=== PATIENT | female | born 1975 | race Caucasian/White ===

== ENCOUNTER 2018-09-05 19:47 | Emergency (ER) | payer OTHER, SELFPAY ==
[2018-09-05] MEDS ORDERED: IBUPROFEN 200 MG TAB PO ONE (20:33)
--- NOTE | 2018-09-05 21:07 | RAD REPORT ---
EXAM DESCRIPTION: RAD - Foot Left 3 View - 09/05/2018 8:53 pm CLINICAL HISTORY: Left Foot pain status post injury FINDINGS: Minimally displaced oblique fracture involves the mid aspect of the first metatarsal. No d islocation
--- NOTE | 2018-09-05 21:17 | ER ---
Nurse's Notes [facility] Name: Madie Kolb Age: 43 yrs Sex: Female : 1975 Arrival Date: 09/05/2018 Time: 19:48 Bed 18 Private MD: Diagnosis: Displaced fracture of first metatarsal bone, left foot Presentation: 09/05 20:20 Presenting complaint: Patient states: "I dropped some steel from work on my foot" aj1 Reports pain to left foot for the past 2 hours. Swelling noted to left foot. Transition of care: patient was not received from another setting of care. Onset of symptoms was September 05, 2018. Risk Assessment: Do you want to hurt yourself or someone else? Patient reports no desire to harm self or others. Initial Sepsis Screen: Does the patient meet any 2 criteria? No. Patient's initial sepsis screen is negative. Does the patient have a suspected source of infection? No. Patient's initial sepsis screen is negative. Care prior to arrival: None. 20:20 Method Of Arrival: Wheelchair aj1 20:20 Acuity: INGRIS 4 aj1 Triage Assessment: 20:21 General: Appears in no apparent distress. uncomfortable, Behavior is calm, cooperative, aj1 appropriate for age. Pain: Complains of pain in left foot Pain currently is 10 out of 10 on a pain scale. Neuro: Level of Consciousness is awake, alert, obeys commands. Cardiovascular: Patient's skin is warm and dry. Respiratory: Airway is patent Respiratory effort is even, unlabored, Respiratory pattern is regular, symmetrical. Musculoskeletal: Range of motion: limited in left ankle. Injury Description: Patient reports that she dropped steel onto her foot. 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 - Social history:: Smoking status: Patient/guardian denies using tobacco. - Ebola Screening: : Patient denies travel to an Ebola-affected area in the 21 days before illness onset. Screenin:48 Abuse screen: Denies threats or abuse. Nutritional screening: No deficits noted. tr5 Tuberculosis screening: No symptoms or risk factors identified. Fall Risk None identified. Total Severino Fall Scale indicates No Risk (0-24 pts). Assessment: 20:48 General: Appears uncomfortable, Behavior is calm, cooperative, appropriate for age. tr5 Pain: Complains of pain in left foot. Pain: Pain does not radiate. Quality of pain is described as aching, Is continuous. Neuro: Level of Consciousness is awake, alert, obeys commands, Oriented to person, place, time, Sub Arc Operator are equal bilaterally Moves all extremities. Cardiovascular: Heart tones present Bruits absent Capillary refill < 3 seconds Pulses are all present. Edema is 2+ to left foot and left toes. Respiratory: Airway is patent Trachea midline Respiratory effort is even, unlabored, Respiratory pattern is regular, symmetrical, Breath sounds are clear bilaterally. GI: No signs and/or symptoms were reported involving the gastrointestinal system. : No signs and/or symptoms were reported regarding the genitourinary system. EENT: No signs and/or symptoms were reported regarding the EENT system. Derm: Skin is intact, Skin is dry, Skin is normal, Skin temperature is warm. Musculoskeletal: Capillary refill < 3 seconds, Range of motion: intact in all extremities. Vital Signs: 20:21 BP 108 / 74; Pulse 74; Resp 18; Temp 97.7; Pulse Ox 100% on R/A; Weight 61.23 kg (R); aj1 Height 5 ft. 0 in. (152.40 cm) (R); Pain 10/10; 20:21 Body Mass Index 26.37 (61.23 kg, 152.40 cm) aj1 ED Course: 19:48 Patient arrived in ED. ds1 20:17 Angelita Ramirez FNP-C is PHCP. kb 20:17 Yosef Weaver MD is Attending Physician. kb 20:21 Triage completed. aj1 20:21 Arm band placed on Patient placed in an exam room. aj1 20:32 Luis Diggs, RN is Primary Nurse. tr5 20:48 Patient has correct armband on for positive identification. Fall risk band placed. Bed tr5 in low position. Call light in reach. Pulse ox on. NIBP on. Door closed. Noise minimized. 20:53 Foot Left 3 View XRAY In Process Unspecified. EDMS 21:20 Orthoglass splint: Posterior short lleg splint applied on left leg. oe 21:44 No provider procedures requiring assistance completed. Patient did not have IV access tr5 during this emergency room visit. Administered Medications: 20:40 Drug: Ibuprofen 800 mg Route: PO; tr5 21:32 CANCELLED (provider ordered on wrong pt): Lidocaine (1 %) 1 vials 5 ml Infiltration tr5 once; to bedside Outcome: 21:16 Discharge ordered by MD. licea 21:44 Discharged to home ambulatory. tr5 21:44 Condition: stable 21:44 Discharge instructions given to patient, Instructed on discharge instructions, follow up and referral plans. medication usage, Demonstrated understanding of instructions, follow-up care, medications, Prescriptions given X 1. 21:45 Patient left the ED. tr5 Signatures: Dispatcher [employer] EDMS Angelita Ramirez, NEW CAR SALESPERSON-C NEW CAR SALESPERSON-CkMely Santana, RN RN aj1 Violetta Paniagua ds1 Carroll Pretty Tommie, RN RN tr5
--- NOTE | 2018-09-05 21:17 | EDPHYS ---
Physician Documentation [facility] Name: Madie Kolb Age: 43 yrs Sex: Female : 1975 Arrival Date: 09/05/2018 Time: 19:48 Bed 18 Private MD: ED Physician Yosef Weaver HPI: 09/05 21:08 This 43 yrs old Female presents to ER via Wheelchair with complaints of Foot kb Injury. 21:11 The patient presents with an injury, pain, that is acute, swelling, tenderness. The kb complaints affect the left foot. Context: The problem was sustained at work, resulted from a heavy object falling, piece of steel, the patient can partially bear weight, can ambulate using crutches. Onset: The symptoms/episode began/occurred today. Modifying factors: The symptoms are alleviated by nothing, the symptoms are aggravated by weight bearing. Associated signs and symptoms: Pertinent positives: swelling, Pertinent negatives: calf tenderness, fever, nausea, numbness, rash, tingling, vomiting, warmth, weakness. Severity of symptoms: At their worst the symptoms were moderate, in the emergency department the symptoms are unchanged. The patient has not experienced similar symptoms in the past. The patient has not recently seen a physician. 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 - Social history:: Smoking status: Patient/guardian denies using tobacco. - Ebola Screening: : Patient denies travel to an Ebola-affected area in the 21 days before illness onset. ROS: 20:49 Constitutional: Negative for fever, chills, and weight loss, Neck: Negative for injury, kb pain, and swelling, Cardiovascular: Negative for chest pain, palpitations, and edema, Respiratory: Negative for shortness of breath, cough, wheezing, and pleuritic chest pain, Abdomen/GI: Negative for abdominal pain, nausea, vomiting, diarrhea, and constipation, Back: Negative for injury and pain, Skin: Negative for injury, rash, and discoloration, Neuro: Negative for headache, weakness, numbness, tingling, and seizure. 20:49 MS/extremity: Positive for injury or acute deformity, pain, swelling, tenderness, of the left foot. Exam: 20:49 Constitutional: This is a well developed, well nourished patient who is awake, alert, kb and in no acute distress. Head/Face: Normocephalic, atraumatic. ENT: Nares patent. No nasal discharge, no septal abnormalities noted. Tympanic membranes are normal and external auditory canals are clear. Oropharynx with no redness, swelling, or masses, exudates, or evidence of obstruction, uvula midline. Mucous membranes moist. Neck: Trachea midline, no thyromegaly or masses palpated, and no cervical lymphadenopathy. Supple, full range of motion without nuchal rigidity, or vertebral point tenderness. No Meningismus. Chest/axilla: Normal chest wall appearance and motion. Nontender with no deformity. No lesions are appreciated. Cardiovascular: Regular rate and rhythm with a normal S1 and S2. No gallops, murmurs, or rubs. Normal PMI, no JVD. No pulse deficits. Respiratory: Lungs have equal breath sounds bilaterally, clear to auscultation and percussion. No rales, rhonchi or wheezes noted. No increased work of breathing, no retractions or nasal flaring. Abdomen/GI: Soft, non-tender, with normal bowel sounds. No distension or tympany. No guarding or rebound. No evidence of tenderness throughout. Skin: Warm, dry with normal turgor. Normal color with no rashes, no lesions, and no evidence of cellulitis. Neuro: Awake and alert, GCS 15, oriented to person, place, time, and situation. Cranial nerves II-XII grossly intact. Motor strength 5/5 in all extremities. Sensory grossly intact. Cerebellar exam normal. Normal gait. 21:09 Musculoskeletal/extremity: Extremities: grossly normal except: noted in the left foot: kb pain, swelling, tenderness, ROM: limited active range of motion due to pain, Pulses: are normal with no appreciated deficits, Sensation intact. Weight bearing: can bear weight with assistance only, uses crutches. Vital Signs: 20:21 BP 108 / 74; Pulse 74; Resp 18; Temp 97.7; Pulse Ox 100% on R/A; Weight 61.23 kg (R); aj1 Height 5 ft. 0 in. (152.40 cm) (R); Pain 10/10; 20:21 Body Mass Index 26.37 (61.23 kg, 152.40 cm) aj1 Procedures: 21:32 Splinting: Splint applied to left leg using Orthoglass splint, applied by tech. kb Examined by me, post splint application: neurovascular intact, 2+ distal pulses palpable, brisk capillary refill noted, Patient tolerated well. MDM: 20:22 Patient medically screened. kb 21:07 Data reviewed: vital signs, nurses notes. Data interpreted: Pulse oximetry: on room air kb is 100 %. Interpretation: normal. Counseling: I had a detailed discussion with the patient and/or guardian regarding: the historical points, exam findings, and any diagnostic results supporting the discharge/admit diagnosis, radiology results, the need for outpatient follow up, a orthopedic surgeon, to return to the emergency department if symptoms worsen or persist or if there are any questions or concerns that arise at home. 09/05 20:22 Order name: Foot Left 3 View XRAY; Complete Time: 21:17 kb 09/05 20:49 Order name: Short Leg Splint; Complete Time: 21:33 kb Administered Medications: 20:40 Drug: Ibuprofen 800 mg Route: PO; tr5 21:32 CANCELLED (provider ordered on wrong pt): Lidocaine (1 %) 1 vials 5 ml Infiltration tr5 once; to bedside Disposition: 09/05/18 21:16 Discharged to Home. Impression: Displaced fracture of first metatarsal bone, left foot. - Condition is Stable. - Discharge Instructions: Metatarsal Fracture, Cast or Splint Care, [id number]. - Prescriptions for Tylenol- Codeine #3 300-30 mg Oral Tablet - take 1 tablet by ORAL route every 6 hours As needed; 15 tablet. - Medication Reconciliation Form, Thank You Letter, Antibiotic Education, Prescription Opioid Use, Work release form form. - Follow up: Emergency Department; When: As needed; Reason: Worsening of condition. Follow up: Private Physician; When: 2 - 3 days; Reason: Recheck today's complaints, Continuance of care, Re-evaluation by your physician. Signatures: Dispatcher [employer] EDAngelita Maloney, PARAPROFESSIONAL INTERPRETER-C PARAPROFESSIONAL INTERPRETER-Mely Garsia RN RN aj1 Dontae, Luis, RN RN tr5 Corrections: (The following items were deleted from the chart) 21:11 20:49 Constitutional: This is a well developed, well nourished patient who is awake, kb alert, and in no acute distress. Head/Face: Normocephalic, atraumatic. ENT: Nares patent. No nasal discharge, no septal abnormalities noted. Tympanic membranes are normal and external auditory canals are clear. Oropharynx with no redness, swelling, or masses, exudates, or evidence of obstruction, uvula midline. Mucous membranes moist. Neck: Trachea midline, no thyromegaly or masses palpated, and no cervical lymphadenopathy. Supple, full range of motion without nuchal rigidity, or vertebral point tenderness. No Meningismus. Chest/axilla: Normal chest wall appearance and motion. Nontender with no deformity. No lesions are appreciated. Cardiovascular: Regular rate and rhythm with a normal S1 and S2. No gallops, murmurs, or rubs. Normal PMI, no JVD. No pulse deficits. Respiratory: Lungs have equal breath sounds bilaterally, clear to auscultation and percussion. No rales, rhonchi or wheezes noted. No increased work of breathing, no retractions or nasal flaring. Abdomen/GI: Soft, non-tender, with normal bowel sounds. No distension or tympany. No guarding or rebound. No evidence of tenderness throughout. Skin: Warm, dry with normal turgor. Normal color with no rashes, no lesions, and no evidence of cellulitis. Neuro: Awake and alert, GCS 15, oriented to person, place, time, and situation. Cranial nerves II-XII grossly intact. Motor strength 5/5 in all extremities. Sensory grossly intact. Cerebellar exam normal. Normal gait. kb 21:32 21:03 Lidocaine (1 %) 1 vials 5 ml Infiltration once; to bedside ordered. vinayak tr5 :32 21:03 Sutures, Prolene ordered. vinayak [email or web address] :33 21:03 Dressing - Wound ordered. vinayak ferrell5 :33 21:03 Sterile Gloves ordered. vinayak tr5 21:33 21:03 Setup Suture Tray ordered. vinayak tr5 21:45 21:16 09/05/2018 21:16 Discharged to Home. Impression: Displaced fracture of first tr5 metatarsal bone, left foot. Condition is Stable. Forms are Medication Reconciliation Form, Thank You Letter, Antibiotic Education, Prescription Opioid Use. Follow up: Emergency Department; When: As needed; Reason: Worsening of condition. Follow up: Private Physician; When: 2 - 3 days; Reason: Recheck today's complaints, Continuance of care, Re-evaluation by your physician. kb
== END 2018-09-05 21:45 | disposition home or self-care (01) ==
LOC: ER 19:47
PROC: 2W3RX1Z Immobilization of Left Lower Leg using Splint (ICD-10-PCS; principal; 2018-09-05)
DX: S92.312A Displaced fracture of first metatarsal bone, left foot, initial encounter for closed fracture (principal); W22.8XXA Striking against or struck by other objects, initial encounter; Y93.89 Activity, other specified; Y92.89 Other specified places as the place of occurrence of the external cause; Y99.8 Other external cause status
CPT/HCPCS: 99284